=== PATIENT | male | born 1985 | race Caucasian/White ===

== ENCOUNTER 2019-04-04 12:10 | Emergency (ER) | payer OTHER ==
[~2019-04-04] VITALS: Ht 172.7 cm; Wt 83.2 kg
[2019-04-04 12:21] VITALS: BP 124/82; TEMP 98.6
[2019-04-04] MEDS ORDERED: ULTRAM ER100 MG PO (12:26)
[2019-04-04] MEDS ORDERED: NORCO 325 MG-51 TAB PO (13:00)
[2019-04-04 13:31] VITALS: PULSE 85
== END 2019-04-04 13:31 | disposition home or self-care (01) ==
LOC: COL.ER 12:10
DX: S92.902A Unspecified fracture of left foot, initial encounter for closed fracture (principal); V29.9XXA Motorcycle rider (driver) (passenger) injured in unspecified traffic accident, initial encounter

== ENCOUNTER 2020-10-27 10:17 | Emergency (ER) | payer OTHER ==
[~2020-10-27] VITALS: Ht 172.7 cm; Wt 81.4 kg
[~2020-10-27 10:17] MED LIST: NORCO 325 MG-51 TAB PO; ULTRAM ER100 MG PO
[2020-10-27 10:25] VITALS: TEMP 98.1
[2020-10-27 11:03] LABS: BASO # 0.1 (0.0-0.2); EOS # 0.3 (0.0-0.7); EOS % 3.3 % (0-4.0); GRAN # 4.6 (1.4-6.5); GRAN % 60.2 % (42.2-75.2); HEMATOCRIT 41.3 % (42.0-52.0); HEMOGLOBIN 13.4 g/dl (13.5-18.0); LYMPH # 2.1 (1.2-3.4); LYMPH % 27.9 % (20.0-51.0); MEAN CELL VOLUME 93 fl (80.0-100.0); MEAN CORPUSCULAR HEMOGLOBIN 30 pg (27.0-31.0); MEAN CORPUSCULAR HGB CONC 32 g/dl (33.0-37.0); MEAN PLATELET VOLUME 11.6 fl (7.4-10.4); MONO # 0.6 (0.1-0.6); MONO % 7.2 % (1.7-9.3); PLATELET COUNT 310 K/mm3 (130-400); RED BLOOD COUNT 4.43 M/mm3 (4.20-5.60); REDCELL DISTRIBUTION WIDTH-CV 12.8 % (11.5-14.5)
[2020-10-27 11:08] LABS: ALBUMIN 4.4 gm/dL (3.5-5.0); BILIRUBIN,TOTAL 0.3 mg/dL (0.0-1.0); CALCIUM 9.3 mg/dL (8.4-10.2); CREATININE, serum 0.91 (0.66-1.25); POTASSIUM 3.8 mmol/L (3.4-5.0); TOTAL PROTEIN 7.2 gm/dL (6.4-8.2)
[2020-10-27] MEDS ORDERED: FLEXERIL 1010 MG/TAB PO (11:08)
[2020-10-27 11:40] VITALS: BP 147/74; PULSE 74
== END 2020-10-27 11:40 | disposition home or self-care (01) ==
LOC: COL.ER 10:17
PROVIDERS: Physician Assistant
DX: M54.2 Cervicalgia (principal); Z86.79 Personal history of other diseases of the circulatory system; Z88.5 Allergy status to narcotic agent